=== PATIENT | male | born 1955 | race Asian ===

== ENCOUNTER 2019-06-23 08:29 | Outpatient (CLI) | payer BC ==
[2019-06-23] MEDS ORDERED: Iopamidol 370 76% 100 ML VIAL ONE (09:00)
--- NOTE | 2019-06-23 12:43 | CT ---
CT Abdomen Pelvis W Con: 06/23/2019 12:00 AM CLINICAL INFORMATION: Cholelithiasis and weight loss COMPARISON: None. TECHNIQUE: Multiple contiguous axial images were obtained and a CT of the abdomen and pelvis with IV contrast. Oral contrast was administered. Coronal and sagittal reformats were performed. FINDINGS: Lower Chest: within normal limits. Abdomen: Liver: within normal limits. Bile Ducts: Normal caliber. Gallbladder: Large calcified gallstone. Pancreas: within normal limits. Spleen: within normal limits. Adrenals: within normal limits. Kidneys: within normal limits. Pelvis: Reproductive Organs: No pelvic masses. Ureters: within normal limits. Bladder: within normal limits. Peritoneum: No ascites or free air, no fluid collection. Bowel: Normal caliber. Normal appendix. Mesentery and Retroperitoneum: No enlarged mesenteric or retroperitoneal lymph nodes. Vessels: Atherosclerotic calcifications. Abdominal Wall: within normal limits. Bones: Degenerative changes in the spine. IMPRESSION: Cholelithiasis
== END 2019-06-23 08:30 | disposition home or self-care (01) ==
LOC: SCSCT 08:29
PROVIDERS: ATTEND Internal Medicine Gastroenterology
DX: K80.20 Calculus of gallbladder without cholecystitis without obstruction (principal); R93.89 Abnormal findings on diagnostic imaging of other specified body structures; R63.4 Abnormal weight loss
CPT/HCPCS: 74177; Q9967

== ENCOUNTER 2024-04-16 11:24 | Outpatient (CLI) | payer BC | END 2024-04-16 11:25 | disposition home or self-care (01) | LOC: SCSRAD 11:24 | PROVIDERS: ATTEND Family Medicine | DX: M25.512 Pain in left shoulder (principal) | CPT/HCPCS: 72040 ==